=== PATIENT | male | born 1935 | race Caucasian/White ===

== ENCOUNTER 2017-06-22 13:09 | Emergency (ER) | payer MEDICARE, OTHER ==
[2017-06-22 13:18] VITALS: RESP 18
--- NOTE | 2017-06-22 14:20 | C.PDOC ---
History Of Present Illness 82 yr old male presents to the ER with complaints of recurring hematuria since yesterday associated with pelvic pain. Patient states he had similar symptoms in 2015. Denies fever, chills, nausea, vomiting, abdominal pain, difficulty urinating, back pain, weakness or numbness. RECUR HEMATURIA SINCE YEST. +PELVIC PAIN. DENIES DIFF URINATING. NO FEVER, NV. SIM SX 2014 past medical history of hypercholesterolemia and hypertension, he had prostate surgery about 6-7 years ago at [facility]. Patient biannually sees Dr. Lucas EXam neg Time Seen by Provider: 06/22/17 13:56 Chief Complaint (Nursing): Male Genitourinary History Per: Patient History/Exam Limitations: no limitations Onset/Duration Of Symptoms: Days (1) Current Symptoms Are (Timing): Still Present Past Medical History Reviewed: Historical Data, Nursing Documentation, Vital Signs Vital Signs: Last Vital Signs Temp 98.1 F 06/22/17 13:13 Pulse 111 H 06/22/17 13:13 Resp 18 06/22/17 13:13 BP 178/85 H 06/22/17 13:13 Pulse Ox 99 06/22/17 15:04 - Medical History PMH: HTN, Hypercholesterolemia Family History: States: No Known Family Hx - Social History Hx Alcohol Use: No Hx Substance Use: No - Immunization History Hx Tetanus Toxoid Vaccination: No Hx Influenza Vaccination: Yes Hx Pneumococcal Vaccination: Yes Review Of Systems Except As Marked, All Systems Reviewed And Found Negative. Constitutional: Negative for: Fever, Chills Gastrointestinal: Negative for: Nausea, Vomiting, Abdominal Pain Genitourinary: Positive for: Hematuria, Other ((+) Pelvic pain) Musculoskeletal: Negative for: Back Pain Neurological: Negative for: Weakness, Numbness Physical Exam - Physical Exam Appears: Non-toxic, No Acute Distress Skin: Warm, Dry, No Rash Head: Atraumatic, Normacephalic Oral Mucosa: Moist Chest: Symmetrical, No Tenderness Cardiovascular: Rhythm Regular, No Murmur Respiratory: Normal Breath Sounds, No Rales, No Rhonchi, No Stridor, No Wheezing Gastrointestinal/Abdominal: Normal Exam, Soft, No Tenderness, No Guarding, No Rebound Extremity: Normal ROM, No Swelling Neurological/Psych: Oriented x3, Normal Speech, Normal Motor ED Course And Treatment O2 Sat by Pulse Oximetry: 99 (RA) Pulse Ox Interpretation: Normal Medical Decision Making Medical Decision Making: PLAN: * Bladder Scan * Urinalysis Disposition Counseled Patient/Family Regarding: Studies Performed, Diagnosis, Need For Followup, Rx Given - Disposition Referrals: Shashi Lucas MD [Staff Provider] - Disposition: HOME/ ROUTINE Disposition Time: 15:23 Condition: IMPROVED Prescriptions: Ciprofloxacin [Cipro] 1 tab PO BID #14 tab Phenazopyridine HCl [Pyridium] 200 mg PO BID #6 tablet Instructions: Acute Hematuria (ED), Urinary Tract Infection in Men (ED) Forms: [employer] (Maldivian) - Clinical Impression Clinical Impression: Urinary tract infection, Hematuria - Scribe Statement The provider has reviewed the documentation as recorded by the Adamaris Haile Provider Attestation: All medical record entries made by the Adamaris were at my direction and personally dictated by me. I have reviewed the chart and agree that the record accurately reflects my personal performance of the history, physical exam, medical decision making, and the department course for this patient. I have also personally directed, reviewed, and agree with the discharge instructions and disposition.
[2017-06-22 14:47] LABS: RBC URINE 106 /hpf (0-3); URINE BACTERIA OCC (<OCC); URINE BILIRUBIN NEGATIVE (NEGATIVE); URINE BLOOD 3+ (NEGATIVE); URINE COLOR Red (YELLOW); URINE GLUCOSE (UA) NORMAL (Normal); URINE KETONE NEGATIVE (NEGATIVE); URINE LEUKOCYTE ESTERASE 3+ Leu/uL (Negative); URINE PROTEIN 2+ mg/dL (NEGATIVE); URINE UROBILINOGEN NORMAL mg/dL (0.2-1.0); WBC URINE 165 /hpf (0-5)
[2017-06-22 15:37] VITALS: BP 148/79; PULSE 87; TEMP 97.9; O2SAT 98
== END 2017-06-22 15:44 | disposition home or self-care (01) ==
LOC: C.ER 13:09
DX: N39.0 Urinary tract infection, site not specified (principal); R31.9 Hematuria, unspecified

== ENCOUNTER 2017-09-21 11:28 | Day surgery (SDC) | payer MEDICARE, OTHER ==
[2017-09-10 09:21] VITALS: BMI 24.5
[2017-09-21] MEDS ORDERED: Iohexol 240 (50 ml) ONE (13:52)
[2017-09-21] MEDS ORDERED: Lidocaine 2% Jelly (Uro-Jet) ONE (13:52)
[2017-09-21] MEDS ORDERED: Lactated Ringer's 1,000 ML IV ONE (13:52)
[2017-09-21] MEDS ORDERED: Ciprofloxacin 400mg/200ml D5W 400 MG/200 ML BAG IVPB ONE (13:52)
[2017-09-21] MEDS ORDERED: Propofol 10 mg/ml Inj (20 ML) ONE (14:00)
[2017-09-21] MEDS ORDERED: Lidocaine Hydrochloride 5 ML INJ ONE (14:01)
[2017-09-21] MEDS ORDERED: Oxycodone/Acetaminophen 5/325 mg Tab PO PRN (14:52)
[2017-09-21 15:24] VITALS: O2SAT 100
--- NOTE | 2017-09-21 15:38 | RAD ---
HISTORY: HEMATURIA COMPARISON: No prior. FINDINGS: BOWEL: Preliminary abdomen KUB radiograph demonstrates gas seen mildly distending various large-bowel loops and mildly extending distending multiple small bowel loops as well but without a bowel obstruction gas pattern being demonstrated. No gross free intraperitoneal gas identified. Potential intra-abdominal calcification are obscured by the bowel gas pattern if present. Post procedure abdomen KUB reveals a left-sided double-J ureteral stent in position with the better depiction of likely left intrarenal calcifications scattered in the left kidney in the left flank. BONES: Normal. OTHER FINDINGS: None. IMPRESSION: Radiograph substrate preliminary and post double-J ureteral stent pattern of likely nonobstructive bowel gas distention as per above. Intrarenal calculi are suggested scattered at the left kidney region. Some calcifications are obscured by the bowel gas pattern but none are appreciate approximating the edges of the stent.
--- NOTE | 2017-09-21 15:40 | RAD ---
PROCEDURE: Intraoperative Fluoroscopy. HISTORY: HEMATURIA FINDINGS: Fluoroscopic assistance was provided for left ureteral stent deployment. Please refer to the operative report from with a cumulative dose of 0.21031 mGy -m2.
[2017-09-21 16:55] VITALS: RESP 16
[2017-09-21 17:36] VITALS: BP 155/76; PULSE 85; TEMP 97.2
--- NOTE | 2017-11-10 06:53 | OP ---
PROCEDURE DATE: PREOPERATIVE DIAGNOSES: Hematuria and voiding dysfunction. POSTOPERATIVE DIAGNOSES: Hematuria and voiding dysfunction and bladder lesion. PROCEDURE: Cystoscopy, bilateral retrograde left and right. Retrograde pyelogram, insertion of a left double J stent, and a bladder biopsy and fulguration. COMPLICATIONS: None. ESTIMATED BLOOD LOSS: Less than 10 mL At termination, the patient has a double-J stent in, with further management plans. DESCRIPTION OF PROCEDURE: After obtaining informed consent, the patient was placed on the operating table. Routine monitor was placed. Time-out was called to confirm the patient and positioning. Antibiotic prophylaxis was used. We introduced the cystoscope via urethra, anterior normal. On viewing it, visually occlusive . Bladder inspected, lesion that subsequently biopsy. First we performed left and right retrograde pyelogram. A left double-J stent was inserted. Subsequently, a bladder biopsy and fulguration was performed. At the termination of the procedure, the patient had a double-J stent in. The patient tolerated without complication. Further followup plans will follow. El Johnson MD
== END 2017-09-21 17:34 | disposition hospice, home (50) ==
LOC: C.SDS 11:28
PROVIDERS: ATTEND Urology
DX: N32.9 Bladder disorder, unspecified (principal); R31.0 Gross hematuria
CPT/HCPCS: 52204; 52332; 74020; 88305; 88342; C1758; C1769; C2617; J0744; J1170; J7120; Q9966

== ENCOUNTER 2017-09-28 12:25 | Day surgery (SDC) | payer MEDICARE, OTHER ==
[2017-09-10 09:21] VITALS: BMI 24.5
[2017-09-28] MEDS ORDERED: Midazolam 2 MG/2 ML VIAL ONE (14:42)
[2017-09-28] MEDS ORDERED: Propofol 10 mg/ml Inj (20 ML) ONE (14:42)
[2017-09-28] MEDS ORDERED: Lidocaine 2% Jelly (Uro-Jet) ONE (14:43)
[2017-09-28] MEDS ORDERED: Iohexol 240 (50 ml) ONE (14:43)
[2017-09-28] MEDS ORDERED: Gentamicin 80 mg in 0.9% NS 80 MG/100 ML BAG IVPB ONE (14:43)
[2017-09-28] MEDS ORDERED: Lactated Ringer's 1,000 ML IV ONE (14:44)
[2017-09-28] MEDS ORDERED: HYDROmorphone 0.5 mg/0.5 ml ISec IVP PRN (15:15)
[2017-09-28] MEDS ORDERED: Oxycodone/Acetaminophen 5/325 mg Tab PO PRN (15:42)
[2017-09-28 16:16] VITALS: BP 118/64; PULSE 80; RESP 10; TEMP 97.5; O2SAT 100
--- NOTE | 2017-09-28 16:23 | RAD ---
HISTORY: HEMATURIA COMPARISON: Abdominal x-ray performed 09/21/17 FINDINGS: BOWEL: Nonspecific bowel gas pattern. Moderate constipation. BONES: Mild degenerative changes. OTHER FINDINGS: Left ureteral stent. IMPRESSION: Left ureteral stent. Moderate constipation.
--- NOTE | 2017-09-29 12:45 | OP ---
PROCEDURE DATE: 09/28/2017 PREOPERATIVE DIAGNOSES: Gross hematuria, abnormal urine cytology, with atypical cells, but nonmalignant cells, gross episode of hematuria, history of prostate cancer, currently PSA is undetectable, and no evidence of recurrent cancer. POSTOPERATIVE DIAGNOSES: Gross hematuria, abnormal urine cytology, with atypical cells, but nonmalignant cells, gross episode of hematuria, history of prostate cancer, currently PSA is undetectable, and no evidence of recurrent cancer. PROCEDURE: Cystoscopy, removal of left double J-stent, left retrograde pyelogram, insertion of left ureteroscopy, left renoscopy. (We inspected the calyces, there was some little extravasation of urine, but specifically on the very first retrograde pyelogram, I did not see any major abnormalities). Overall, the patient tolerated the procedure well without complications. BLOOD LOSS: Less than 10 mL. DRAINS: None. Even though I saw the extravasation, overall, the remainder of the procedure was essentially unremarkable in terms of any trauma. The patient was looking to get his stent out. It was bothering him a lot. In fact, we brought him in sort of an urgent admission. See the history and physical for the details and so after discussing all the options, the patient underwent the above procedure and we left him without a stent. We provided him some Toradol, but we are not planning to repeat further with him. We did leave . See the addendum at the end and also after the procedure note, plan is that patient of course requires followup. To make sure we did not miss any malignancy, but as of today, again see the body of the report below, we did not see any signs of malignancy. But we are very concerned for malignancy given his age of [age] years old, he has history of prostate cancer, although his PSA is essentially undetectable. DESCRIPTION OF PROCEDURE: After obtaining informed consent, the patient was placed on the table. Routine monitors were placed. Time-out was called to confirm the patient and positioning. We discussed options, risks, benefits, and alternatives at length. We introduced cystoscope via the urethra. We identified the old stent, removed it with a wire, went up to the kidney without any major difficulty. At this point, we introduced the ureteroscope, we used the flexible ureteroscope. We injected contrast to see all the calyces. The first set of contrast was all within normal limits. There was no extravasation initially. Though later, we will see a little bit, but there was no real filling defect, no abnormalities detected. We inspected very carefully. I did not see any major lesions in the bladder, nothing else in the kidney. The patient tolerated the procedure well without complications. ADDENDUM: After today's findings, I do not really find or suspect any malignancy, although it is obviously very concerning he has a history of prostate cancer, no evidence of disease recurrence, but the other part concerning is that the patient has a wide open bladder neck, I do not see any signs of retention, no voiding dysfunction, or any reason or causes for the bleeding. Therefore, I am very worried for malignancy and need to keep a close eye. El Johnson MD
--- NOTE | 2017-09-29 12:48 | HP ---
URGENT HISTORY AND PHYSICAL REASON FOR ADMISSION: Gross hematuria and a lot of stent discomfort. Please see the previously dictated note from 10/22/2016. The patient is a very pleasant gentleman. He has a history of prostate cancer. He was treated years and years ago with a radical prostatectomy. PSA has been undetectable. My last note noted the presence of essentially no prostatic tissue with an open bladder neck very nicely, and we did not see any malignancy within the bladder; specifically, we are searching for it because the patient had an episode or two of gross hematuria which has not recurred yet. He also has atypical cytology. There was a question of a lesion on the left side. The last time we did a cysto retrograde, I did not see any abnormality. We put a stent in and was here today for a stent removal, ureteroscopy with a possible biopsy. (I would like to not forget about the right side and see the plans listed below). PAST MEDICAL AND SURGICAL HISTORY: As before, there is really no change in the last week. REVIEW OF SYSTEMS: Listed above. Patient came in actually complaining Wednesday of so much stent pain and discomfort, he came with his son. I have been talking to the patient a week, but he really had a tremendous amount of discomfort. We discussed options with the patient and actually after discussing those options, he is here today as an urgent admission and is going to the OR. Past medical and surgical history are as follows. He has no history otherwise is as listed. REVIEW OF SYSTEMS: Listed above. No weight loss, chest pain, shortness of breath or the like. No constitutional complains. MEDICATIONS: See the chart. ALLERGIES: HE IS ALLERGIC TO PENICILLIN. See the plan listed below in terms of antibiotic coverage. PHYSICAL EXAMINATION: GENERAL: A well-nourished male, in no apparent distress. VITAL SIGNS: Within normal limits, included in the chart. LUNGS: Clear. ABDOMEN: Overall soft and nontender. No flank mass was noted. GENITOURINARY: Normal phallus. No discharge. No testicular masses. The prostatic fossa is really essentially empty. LABORATORY DATA: See chart. PSA is notably undetectable. Urine cytology is atypical. ASSESSMENT AND PLAN: In summary, a very pleasant gentleman. There is a question of something on the left side. Before we go pursuing left and right side, we did a stent last week on the left, coming back today to do cystoscopy, stent removal, and we are hoping to keep it out. We will see how it does. We offered different options with benefits and treatment alternatives. The plan is the patient is getting admitted as an urgent admission. He is going to the operating room today immediately. We are going to do antibiotic prophylaxis. We will not use any kind of filling of course. Further plans will follow. I discussed with the patient possibly doing lesion random biopsies. We discussed leaving a stent, but he is having a lot of stent discomfort, so we are not really going to plan to do this and we do not need to. So the plan is as follows: 1. Antibiotic prophylaxis. 2. Cystoscopy. 3. Ureteroscopy. 4. We will remove the old stent and we will do a ureterorenoscopy and then further plans to follow up depending on how she does clinically. We inspected carefully every calyx, we were able to go in and out every calyx in the left side, I do not see any abnormalities. I do not see anything as kidney stone. Everything on cystoscopy relatively normal. The patient tolerated the procedure well. See the separately dictated procedure note. The Urology plans to hold his antibiotic prophylaxis. Ureteroscopy . El Johnson MD
--- NOTE | 2017-09-29 15:29 | RAD ---
PROCEDURE: Intraoperative fluoroscopy HISTORY: HEMATURIA COMPARISON: Not available TECHNIQUE: Intraoperative fluoroscopy was provided for a retrograde pyelogram. Total time of fluoroscopy was 14.3 seconds. FINDINGS: Four fluoroscopic spot films are submitted. These films are on file for review. IMPRESSION: Fluoroscopy provided.
== END 2017-09-28 17:05 | disposition home or self-care (01) ==
LOC: C.SDS 12:25
PROVIDERS: ATTEND Urology
DX: Z85.46 Personal history of malignant neoplasm of prostate (principal); Z88.0 Allergy status to penicillin; R31.0 Gross hematuria
CPT/HCPCS: 52310; 74018; 76000; C1769; J1580; J7120